=== PATIENT | female | born 1990 | race Caucasian/White ===

== ENCOUNTER 2016-08-15 10:53 | Emergency (ER) | payer OTHER ==
[2016-08-15 10:58] VITALS: RESP 20; TEMP 96.8; O2SAT 100
[2016-08-15 11:19] VITALS: BP 133/76; PULSE 81
== END 2016-08-15 12:05 | disposition home or self-care (01) | DRG 781 ==
LOC: ED 10:53
DX: O24.414 Gestational diabetes mellitus in pregnancy, insulin controlled (principal)
CPT/HCPCS: 59025; 82962; 99283; 99284

== ENCOUNTER 2016-08-19 04:49 | Inpatient (IN) | payer MEDICAID, OTHER ==
[2016-08-19] MEDS ORDERED: CITRIC ACID/SODIUM CITRATE SOL PO SCH (05:30)
[2016-08-19] MEDS: LACTATED RINGERS 1,000 ML IV SCH ×5 (05:51→21:38)
[2016-08-19] MEDS ORDERED: CEFAZOLIN SODIUM 1 GM PDS IV ONE (06:40)
[2016-08-19] MEDS ORDERED: [UNRECOGNIZED DRUG - OTHER] IV ONE (06:57)
[2016-08-19] MEDS ORDERED: LACTATED RINGERS 1,000 ML with OXYTOCIN 10000 MU/ML 20 MU IV ONE (07:15)
[2016-08-19] MEDS ORDERED: KETOROLAC TROMETHAMINE 30 MG/ML SOL IV ONE (07:59)
[2016-08-19] MEDS ORDERED: WITCH HAZEL 1 EA PAD TOP PRN (08:00)
[2016-08-19] MEDS ORDERED: BENZOCAINE/MENTHOL 1 SPR TOP PRN (08:00)
[2016-08-19] MEDS ORDERED: BISACODYL 10 MG SUP PR PRN (08:00)
[2016-08-19] MEDS ORDERED: ONDANSETRON HCL 4 MG/2 ML SOL IV PRN (08:00)
[2016-08-19] MEDS ORDERED: DIPHENHYDRAMINE 25 MG CAP PO PRN (08:00)
[2016-08-19] MEDS ORDERED: TEMAZEPAM 15MG 15 MG CAP PO PRN (08:00)
[2016-08-19] MEDS ORDERED: METHYLERGONOVINE MALEATE 0.2 MG TAB PO PRN (08:00)
[2016-08-19] MEDS ORDERED: FLEET ENEMA PR PRN (08:00)
[2016-08-19] MEDS ORDERED: DIPHENHYDRAMINE 50 MG/ML SOL IV ONE (08:10)
[2016-08-19] MEDS: CEFAZOLIN (PREMIX) 1 GM 1 GM/50 ML SOL IV SCH ×2 (09:34→13:24)
[2016-08-19] MEDS: KETOROLAC TROMETHAMINE 30 MG/ML SOL IV PRN ×2 (16:42→23:16)
[2016-08-19] MEDS: APAP/HYDROCODONE 325/5 TAB PO PRN (19:30)
[2016-08-19] MEDS: DOCUSATE SODIUM 100 MG SGL PO SCH ×2 (20:14→20:56)
[2016-08-19 20:40] LABS: APPEARANCE,URINE Slightly Cloudy; BILIRUBIN,URINE NEGATIVE (NEGATIVE); COLOR,URINE Yellow; GLUCOSE, URINE (UA) NEGATIVE (NEGATIVE); KETONES,URINE NEGATIVE (NEGATIVE); LEUKOCYTE ESTERASE ,URINE 2+ (NEGATIVE); NITRATE,URINE POSITIVE (NEGATIVE); OCCULT BLOOD,URINE NEGATIVE (NEG-TRACE); UROBILINOGEN,URINE 0.2 (0.2-1.0 EU)
[2016-08-19 20:53] LABS: RBC,URINE 0-2 (0-3AV/HPF)
[2016-08-20] MEDS: LACTATED RINGERS 1,000 ML IV SCH ×3 (01:27→14:37)
[2016-08-20] MEDS: APAP/HYDROCODONE 325/5 TAB PO PRN ×2 (02:43→09:10)
[2016-08-20] MEDS ORDERED: METHYLERGONOVINE MALEATE 0.2 MG/ML SOL IM ONE (02:57)
[2016-08-20] MEDS: KETOROLAC TROMETHAMINE 30 MG/ML SOL IV PRN (05:40)
[2016-08-20] MEDS: DOCUSATE SODIUM 100 MG SGL PO SCH ×2 (09:10→21:12)
[2016-08-20] MEDS: METHYLERGONOVINE MALEATE 0.2 MG TAB PO SCH ×3 (09:10→14:27)
[2016-08-20] MEDS ORDERED: SULFAMETHOXAZOLE/TRIMETHOPRI 800/160 MG ONE ×2 (09:14→21:07)
[2016-08-20] MEDS: SULFAMETHOXAZOLE/TRIMETHOPRI 800/160 MG PO SCH ×2 (09:17→21:11)
[2016-08-20 10:07] LABS: UNIT TYPE A POSITIVE
[2016-08-20 10:08] LABS: UNIT TYPE A POSITIVE
[2016-08-20] MEDS: SODIUM CHLORIDE 0.9% FLUSH 10 ML SOL IV SCH ×2 (10:17→16:20)
[2016-08-20] MEDS: SODIUM CHLORIDE 0.9% 500 ML 500 ML IV SCH (10:35)
[2016-08-20] MEDS: IBUPROFEN 600 MG TAB PO PRN (11:29)
[2016-08-20] MEDS ORDERED: FUROSEMIDE 20mg SOL ONE ×2 (12:49→16:03)
[2016-08-20] MEDS: SODIUM CHLORIDE 0.9% FLUSH 10 ML SOL IV PRN ×3 (12:52→13:55)
[2016-08-20] MEDS: FUROSEMIDE 20mg SOL IV SCH ×2 (12:52→16:12)
[2016-08-20] MEDS ORDERED: HYDROMORPHONE HCL 2 MG/ML 1 ML SOL ONE ×2 (13:17→13:52)
[2016-08-20] MEDS: HYDROMORPHONE HCL 2 MG/ML 1 ML SOL IV PRN ×3 (13:20→16:18)
[2016-08-20 18:50] LABS: BASOPHILS % (AUTO) 0 % (0-3); EOSINOPHILS % (AUTO) 0 % (0-9); HEMATOCRIT 32 % (35-47); MEAN CORPUSCULAR HGB CONC 31.8 gm/dl (32.0-36.0); MONOCYTES % (AUTO) 6.6 % (0-12); NEUTROPHILS % (AUTO) 84.3 % (37-80)
[2016-08-20 18:55] LABS: MEAN CORPUSCULAR VOLUME 67 fL (81-99)
[2016-08-20 18:57] LABS: POTASSIUM 3.8 mMol/L (3.5-5.1)
[2016-08-20 19:01] LABS: ANISOCYTOSIS MOD AMT
[2016-08-20] MEDS ORDERED: KETOROLAC TROMETHAMINE 30 MG/ML SOL IV ONE (20:16)
[2016-08-21] MEDS ORDERED: HYDROMORPHONE HCL 2 MG/ML 1 ML SOL ONE (00:01)
[2016-08-21] MEDS: HYDROMORPHONE HCL 2 MG/ML 1 ML SOL IV PRN (00:05)
[2016-08-21] MEDS: SODIUM CHLORIDE 0.9% FLUSH 10 ML SOL IV SCH ×3 (00:05→18:20)
[2016-08-21] MEDS: APAP/HYDROCODONE 325/5 TAB PO PRN ×6 (03:55→21:03)
[2016-08-21] MEDS: IBUPROFEN 600 MG TAB PO PRN ×4 (03:55→22:42)
[2016-08-21] MEDS: SODIUM CHLORIDE 0.9% 500 ML 500 ML IV SCH (06:36)
[2016-08-21 07:26] LABS: BASOPHILS % (AUTO) 0 % (0-3); EOSINOPHILS % (AUTO) 1 % (0-9); HEMATOCRIT 28 % (35-47); MEAN CORPUSCULAR HGB CONC 33.9 gm/dl (32.0-36.0); MONOCYTES % (AUTO) 7.5 % (0-12); NEUTROPHILS % (AUTO) 81.4 % (37-80)
[2016-08-21 07:31] LABS: CALCIUM 7.9 mg/dl (8.5-10.1); POTASSIUM 3.6 mMol/L (3.5-5.1)
[2016-08-21 07:45] LABS: MEAN CORPUSCULAR VOLUME 67 fL (81-99)
[2016-08-21 07:46] LABS: ANISOCYTOSIS SLIGHT AMT; OVALOCYTES PRESENT
[2016-08-21] MEDS ORDERED: SULFAMETHOXAZOLE/TRIMETHOPRI 800/160 MG ONE (08:31)
[2016-08-21] MEDS: DOCUSATE SODIUM 100 MG SGL PO SCH ×2 (08:32→21:03)
[2016-08-21] MEDS: SULFAMETHOXAZOLE/TRIMETHOPRI 800/160 MG PO SCH (08:33)
[2016-08-21] MEDS: CIPROFLOXACIN HCL 500 MG TAB PO SCH ×2 (14:23→21:03)
[2016-08-21] MEDS ORDERED: CIPROFLOXACIN HCL 500 MG TAB PO ONE (20:59)
[2016-08-21] MEDS ORDERED: DOCUSATE SODIUM 100 MG SGL ONE (20:59)
[2016-08-21] MEDS ORDERED: APAP/HYDROCODONE 325/5 TAB ONE (21:00)
[2016-08-21 22:47] VITALS: RESP 16
[2016-08-22] MEDS: APAP/HYDROCODONE 325/5 TAB PO PRN ×2 (01:41→11:00)
[2016-08-22] MEDS: SODIUM CHLORIDE 0.9% 500 ML 500 ML IV SCH (03:40)
[2016-08-22] MEDS: SODIUM CHLORIDE 0.9% FLUSH 10 ML SOL IV SCH (04:58)
[2016-08-22] MEDS: IBUPROFEN 600 MG TAB PO PRN (07:56)
[2016-08-22 08:02] VITALS: BP 102/68; PULSE 83; TEMP 97.4; O2SAT 98
[2016-08-22] MEDS ORDERED: CIPROFLOXACIN HCL 500 MG TAB PO ONE (08:47)
[2016-08-22] MEDS: CIPROFLOXACIN HCL 500 MG TAB PO SCH (08:52)
[2016-08-22] MEDS: DOCUSATE SODIUM 100 MG SGL PO SCH (08:52)
== END 2016-08-22 13:25 | disposition home or self-care (01) | DRG 765 ==
LOC: OB 04:49 → EDSTATUS 06:00
PROVIDERS: ADMIT Family Medicine; ATTEND Family Medicine
PROC: 0UB70ZZ Excision of Bilateral Fallopian Tubes, Open Approach (ICD-10-PCS; 2016-08-19)
PROC: 10D00Z1 Extraction of Products of Conception, Low, Open Approach (ICD-10-PCS; principal; 2016-08-19 06:00)
PROC: 30233N1 Transfusion of Nonautologous Red Blood Cells into Peripheral Vein, Percutaneous Approach (ICD-10-PCS; 2016-08-20)
DX: O36.63X0 Maternal care for excessive fetal growth, third trimester, not applicable or unspecified (principal); O86.22 Infection of bladder following delivery; O72.1 Other immediate postpartum hemorrhage; O34.219 Maternal care for unspecified type scar from previous cesarean delivery; O24.429 Gestational diabetes mellitus in childbirth, unspecified control; Z3A.38 38 weeks gestation of pregnancy; Z37.0 Single live birth; Z30.2 Encounter for sterilization; D64.9 Anemia, unspecified; B96.20 Unspecified Escherichia coli [E. coli] as the cause of diseases classified elsewhere; R10.817 Generalized abdominal tenderness; R10.84 Generalized abdominal pain
CPT/HCPCS: 36415; 59025; 74177; 80048; 81001; 82962; 85018; 85025; 86920; 87077; 87088; 87186; 99001; 99070; J0690; J1170; J1200; J1885; J1940; J2275; J2405; J2590; P9016; Q9967

== ENCOUNTER 2016-09-27 13:09 | Emergency (ER) | payer OTHER ==
[2016-09-27 13:36] VITALS: PULSE 65; RESP 18; TEMP 96.8; O2SAT 99
[2016-09-27 14:13] VITALS: BP 104/70
== END 2016-09-27 15:41 | disposition home or self-care (01) | DRG 776 ==
LOC: ED 13:09
DX: O72.2 Delayed and secondary postpartum hemorrhage (principal); D64.9 Anemia, unspecified
CPT/HCPCS: 36415; 85018; 99283

== ENCOUNTER 2017-01-05 11:46 | Emergency (ER) | payer OTHER ==
[2017-01-05 11:46] VITALS: O2SAT 99
[2017-01-05 11:52] VITALS: BP 120/71; PULSE 88; RESP 20; TEMP 96.3
== END 2017-01-05 12:45 | disposition home or self-care (01) ==
LOC: ED 11:46
DX: L03.111 Cellulitis of right axilla (principal)
CPT/HCPCS: 99282

== ENCOUNTER 2017-02-17 21:46 | Emergency (ER) | payer OTHER ==
[2017-02-17 21:57] VITALS: RESP 18; TEMP 97.5
[2017-02-17 22:15] LABS: APPEARANCE,URINE Clear; BILIRUBIN,URINE NEGATIVE (NEGATIVE); COLOR,URINE Light yellow; GLUCOSE, URINE (UA) NEGATIVE (NEGATIVE); KETONES,URINE NEGATIVE (NEGATIVE); LEUKOCYTE ESTERASE ,URINE TRACE (NEGATIVE); NITRATE,URINE NEGATIVE (NEGATIVE); OCCULT BLOOD,URINE NEGATIVE (NEG-TRACE); PH,URINE 6.5; UROBILINOGEN,URINE 0.2 (0.2-1.0 EU)
[2017-02-17 22:30] LABS: RBC,URINE 0-1 (0-3AV/HPF); WBC,URINE 0-2 (0-5AV/HPF)
[2017-02-17] MEDS ORDERED: SULFAMETHOXAZOLE/TRIMETHOPRI 800/160 MG PO ONE (22:46)
[2017-02-17] MEDS ORDERED: SULFAMETHOXAZOLE/TRIMETHOPRI 800/160 MG ONE (22:47)
[2017-02-17 23:12] VITALS: BP 119/66; PULSE 79; O2SAT 98
== END 2017-02-17 22:51 | disposition home or self-care (01) ==
LOC: ED 21:46
DX: N10 Acute pyelonephritis (principal)
CPT/HCPCS: 81001; 87088; 99282

== ENCOUNTER 2017-05-04 10:45 | Emergency (ER) | payer OTHER ==
[2017-05-04 10:49] VITALS: BP 122/82; RESP 18; TEMP 97.7; O2SAT 99
[2017-05-04 11:08] VITALS: PULSE 105
== END 2017-05-04 11:07 | disposition home or self-care (01) ==
LOC: ED 10:45
DX: N76.2 Acute vulvitis (principal)
CPT/HCPCS: 99282

== ENCOUNTER 2018-08-25 23:10 | Emergency (ER) | payer OTHER ==
[2018-08-25 23:45] VITALS: TEMP 97.5; O2SAT 98
[2018-08-26] MEDS ORDERED: KETOROLAC TROMETHAMINE 30 MG/ML SOL IV ONE (00:05)
[2018-08-26] MEDS ORDERED: KETOROLAC TROMETHAMINE 30 MG/ML SOL ONE (00:11)
[2018-08-26 00:33] LABS: BASOPHILS % (AUTO) 1 % (0-3); EOSINOPHILS % (AUTO) 2 % (0-9); HEMATOCRIT 35 % (35-47); HEMOGLOBIN 10.7 gm/dl (12.0-15.5); LYMPHOCYTES % (AUTO) 20.4 % (10-50); MEAN CORPUSCULAR HEMOGLOBIN 22.4 pg (27.0-32.0); NEUTROPHILS % (AUTO) 72.3 % (37-80)
[2018-08-26 00:34] LABS: BLOOD UREA NITROGEN 7 mg/dl (7-18); CALCIUM 8.9 mg/dl (8.5-10.1); CARBON DIOXIDE 24.2 mEq/L (21-32); CHLORIDE 104 mMol/L (98-107); CREATININE 0.77 mg/dl (0.60-1.00); GLUCOSE 169 mg/dl (74-106); POTASSIUM 3.6 mMol/L (3.5-5.1); SODIUM 142 mMol/L (136-145); TROP I < 0.017 ng/ml (0.000-0.056)
[2018-08-26 00:35] LABS: MEAN CORPUSCULAR VOLUME 72 fL (81-99)
[2018-08-26 00:54] VITALS: RESP 18
[2018-08-26 01:42] VITALS: BP 116/67; PULSE 80
== END 2018-08-26 01:10 | disposition home or self-care (01) | DRG 313 ==
LOC: ED 23:10
DX: R07.89 Other chest pain (principal); N23 Unspecified renal colic
CPT/HCPCS: 71045; 74018; 80048; 84484; 85025; 93005; 96374; 99283; 99284; J1885

== ENCOUNTER 2018-10-23 09:46 | Emergency (ER) | payer OTHER ==
[2018-10-23] MEDS ORDERED: ACETAMINOPHEN 500 MG 500 MG TAB PO ONE (10:43)
[2018-10-23] MEDS ORDERED: ACETAMINOPHEN 500 MG 500 MG TAB ONE (10:44)
[2018-10-23 11:27] LABS: BASOPHILS % (AUTO) 1 % (0-3); EOSINOPHILS % (AUTO) 0 % (0-9); HEMATOCRIT 36 % (35-47); HEMOGLOBIN 10.9 gm/dl (12.0-15.5); LYMPHOCYTES % (AUTO) 12.5 % (10-50); MEAN CORPUSCULAR HEMOGLOBIN 22.1 pg (27.0-32.0); MEAN CORPUSCULAR HGB CONC 30.5 gm/dl (32.0-36.0); MONOCYTES % (AUTO) 4.7 % (0-12); NEUTROPHILS % (AUTO) 81.7 % (37-80)
[2018-10-23 11:43] LABS: MEAN CORPUSCULAR VOLUME 73 fL (81-99)
[2018-10-23 11:44] LABS: HYPOCHROMASIA SLIGHT
[2018-10-23 11:46] LABS: ALBUMIN 3.6 gm/dl (3.4-5.0); BILIRUBIN,TOTAL 0.2 mg/dl (0.2-1.0); CALCIUM 8.9 mg/dl (8.5-10.1); CARBON DIOXIDE 25.7 mEq/L (21-32); CREATININE 0.62 mg/dl (0.60-1.00); POTASSIUM 4.2 mMol/L (3.5-5.1); TOTAL PROTEIN 7.4 gm/dl (6.4-8.2)
[2018-10-23 12:43] LABS: APPEARANCE,URINE Cloudy; BILIRUBIN,URINE NEGATIVE (NEGATIVE); COLOR,URINE Yellow; GLUCOSE, URINE (UA) NEGATIVE (NEGATIVE); KETONES,URINE NEGATIVE (NEGATIVE); LEUKOCYTE ESTERASE ,URINE TRACE (NEGATIVE); NITRATE,URINE NEGATIVE (NEGATIVE); OCCULT BLOOD,URINE 3+ (NEG-TRACE); UROBILINOGEN,URINE 0.2 (0.2-1.0 EU)
[2018-10-23 12:55] LABS: BACTERIA 4+ (< 1+); CRYSTALS NEGATIVE (0-3 AVE/HPF); EPITHELIAL CELLS TNTC (SQUAMOUS); WBC,URINE 0-2 (0-5AV/HPF)
[2018-10-23 13:02] VITALS: BP 105/70; PULSE 86; RESP 12; TEMP 97.8; O2SAT 100
== END 2018-10-23 14:10 | disposition home or self-care (01) | DRG 690 ==
LOC: ED 09:46
DX: N39.0 Urinary tract infection, site not specified (principal); Z20.818 Contact with and (suspected) exposure to other bacterial communicable diseases
CPT/HCPCS: 36415; 80053; 81001; 84703; 85025; 87077; 87088; 87186; 99283; 99284

== ENCOUNTER 2018-11-20 17:50 | Emergency (ER) | payer OTHER ==
[2018-11-20 17:50] VITALS: O2SAT 100
[2018-11-20 18:26] VITALS: TEMP 97.7
[2018-11-20] MEDS ORDERED: KETOROLAC TROMETHAMINE 30 MG/ML SOL IM ONE (19:12)
[2018-11-20] MEDS ORDERED: KETOROLAC TROMETHAMINE 30 MG/ML SOL ONE (19:14)
[2018-11-20 19:50] VITALS: RESP 20
[2018-11-20 21:02] VITALS: BP 111/61; PULSE 69
== END 2018-11-20 20:45 | disposition home or self-care (01) | DRG 563 ==
LOC: ED 17:50
DX: S39.012A Strain of muscle, fascia and tendon of lower back, initial encounter (principal)
CPT/HCPCS: 72070; 72120; 96372; 99283; J1885

== ENCOUNTER 2019-02-24 11:24 | Day surgery (SDC) | payer OTHER ==
[2019-02-24] MEDS ORDERED: PROPOFOL 500 MG/50 ML EMU IV ONE (11:46)
[2019-02-24 13:48] VITALS: TEMP 98.5
[2019-02-24 14:07] VITALS: RESP 16; O2SAT 100
[2019-02-24] MEDS ORDERED: ONDANSETRON HCL 4 MG/2 ML SOL ONE (14:08)
[2019-02-24 14:21] VITALS: PULSE 58
[2019-02-24 14:22] VITALS: BP 108/67
== END 2019-02-24 14:40 | disposition home or self-care (01) | DRG 392 ==
LOC: SURG 11:24
PROVIDERS: ATTEND Surgery
DX: R10.9 Unspecified abdominal pain (principal); K62.5 Hemorrhage of anus and rectum; O24.439 Gestational diabetes mellitus in the puerperium, unspecified control; R19.4 Change in bowel habit
CPT/HCPCS: J2405; J2704